=== PATIENT | female | born 1990 | race Caucasian/White ===

== ENCOUNTER 2017-09-06 11:31 | Emergency (ER) | payer OTHER ==
[2017-09-06 12:19] LABS: ADD MAN DIFF? NO
[2017-09-06 12:20] LABS: BASOPHILS % 0.4 % (0.0-2.0); EOSINOPHILS # 0.1 10^3/ul (0.0-0.5); EOSINOPHILS % 0.6 % (0.0-7.0); HEMATOCRIT 38.7 % (37.0-47.0); HEMOGLOBIN 12.8 g/dl (12.0-16.0); LYMPHOCYTES # 2.2 10^3/ul (0.8-2.9); MEAN CORPUSCULAR HEMOGLOBIN 29.4 pg (29.0-33.0); MEAN CORPUSCULAR HGB CONC 33.1 g/dl (32.0-37.0); MEAN CORPUSCULAR VOLUME 88.8 fl (82.0-101.0); MEAN PLATELET VOLUME 9.9 fl (7.4-10.4); MONOCYTE # 0.4 10^3/ul (0.3-0.9); MONOCYTES % 4.9 % (0.0-11.0); NEUTROPHIL # 5.1 10^3/ul (1.6-7.5); NEUTROPHILS % 65.7 % (39.0-77.0); PLATELET COUNT 205 10^3/UL (140-415); RED BLOOD COUNT 4.36 10^6/ul (4.20-5.40); RED CELL DISTRIBUTION WIDTH 12.7 % (11.5-14.5)
[2017-09-06 12:20] LABS: WHITE BLOOD COUNT 7.8 10^3/ul (4.8-10.8)
[2017-09-06] MEDS: LORAZEPAM 0.5 MG TAB PO (12:24)
[2017-09-06 12:27] LABS: URINE BLOOD (Dip) POC Negative (NEGATIVE); URINE GLUCOSE (Dip) POC Negative (NEGATIVE); URINE KETONES (Dip) POC Negative (NEGATIVE); URINE LEUKOCYTE EST (Dip) POC Negative (NEGATIVE); URINE NITRITE (Dip) POC Negative (NEGATIVE); URINE TOTAL PROTEIN POC Negative (NEGATIVE)
[2017-09-06] MEDS: KETOROLAC 30 MG INJ IV (12:33)
[2017-09-06] MEDS: METOCLOPRAMIDE 10 MG INJ IV (12:33)
[2017-09-06 12:45] LABS: ANION GAP 13 (8-16); BLOOD UREA NITROGEN 8 mg/dl (7-20); CALCIUM 8.9 mg/dl (8.4-10.2); CARBON DIOXIDE 24 mmol/L (21-31); CHLORIDE 108 mmol/L (97-110); CREATININE 0.81 mg/dl (0.44-1.00); GLUCOSE 93 mg/dl (70-220); INR 0.93; PARTIAL THROMBOPLASTIN TIME 26.6 Sec (25.0-35.0); POTASSIUM 3.7 mmol/L (3.5-5.1); PROTIME 12.6 Sec (11.9-14.9); SODIUM 141 mmol/L (135-144)
== END 2017-09-06 13:08 | disposition home or self-care (01) ==
LOC: FTE 11:31
DX: R51 Headache (principal); R07.9 Chest pain, unspecified
CPT/HCPCS: 36415; 70450; 80048; 81003; 81025; 85025; 85610; 85730; 96374; 96375; 99285-25

== ENCOUNTER 2018-04-28 11:50 | Emergency (ER) | payer OTHER | END 2018-04-28 14:30 | disposition left against medical advice (07) | LOC: FTE 11:50 | DX: M25.511 Pain in right shoulder (principal); R07.9 Chest pain, unspecified | CPT/HCPCS: 71045; 73030-RT; 81025; 99284-25 ==